=== PATIENT | female | born 1970 | race Caucasian/White ===

== ENCOUNTER → 2019-12-23 | Outpatient (CLI) | payer OTHER ==
--- NOTE | 2019-12-23 11:33 | Diagnostic Imaging Report ---
INDICATION: Palpable lump right breast. Correlation made with diagnostic mammogram earlier same day. Sonographic interrogation of the area of palpable abnormality was performed. This corresponds to the 12:00 location. No sonographic abnormalities identified. No solid or cystic mass is detected. IMPRESSION: BI-RADS Category 1 No sonographic abnormality is detected. Close clinical and self breast exam is recommended to confirm stability of the palpable abnormality. ACR BI-RADS Category 1: Negative. Dictated by: Dictated on workstation # [id number]
--- NOTE | 2019-12-23 12:14 | Diagnostic Imaging Report ---
INDICATION: Palpable lump in the upper right breast. Correlation is made with prior mammogram from 12/25/2018. 2-D and 3-D bilateral diagnostic mammography was performed with CAD. BB markers placed at the area of palpable abnormality in the upper right breast. Both breasts are heterogeneously dense, limiting the sensitivity of mammography. Postsurgical changes in the upper outer right breast are noted. Overall breast parenchymal pattern is stable. No mass or malignant appearing microcalcifications are seen. Axillae are unremarkable. IMPRESSION: BI-RADS Category 0 No mammographic features suspicious for malignancy are identified. Even so, directed sonographic interrogation of the area of palpable abnormality in the right breast is recommended and will be performed today. ACR BI-RADS Category 0: Incomplete. (Needs additional imaging evaluation). Result letter will be mailed to the patient. Note: At least 10% of breast cancer is not imaged by mammography. Dictated by: Dictated on workstation # [id number]
== END ==
LOC: RAD 09:17
PROVIDERS: ATTEND Nurse Practitioner Family
DX: N60.11 Diffuse cystic mastopathy of right breast (principal); N63.10 Unspecified lump in the right breast, unspecified quadrant
CPT/HCPCS: 76642; 77066; G0279; 77062